=== PATIENT | female | born 1965 | race African-American/Black ===

== ENCOUNTER → 2019-06-06 | Outpatient (CLI) | payer OTHER | LOC: MAMMO 08:31 | PROVIDERS: ATTEND Obstetrics & Gynecology | DX: Z12.31 Encounter for screening mammogram for malignant neoplasm of breast (principal) | CPT/HCPCS: 77067 ==

== ENCOUNTER → 2020-06-07 | Outpatient (CLI) | payer OTHER | LOC: MAMMO 13:05 | PROVIDERS: ATTEND Obstetrics & Gynecology | DX: Z12.31 Encounter for screening mammogram for malignant neoplasm of breast (principal) | CPT/HCPCS: 77067 ==

== ENCOUNTER → 2021-12-31 | Outpatient (CLI) | payer BC | LOC: MAMMO 08:33 | PROVIDERS: ATTEND Obstetrics & Gynecology | DX: Z12.31 Encounter for screening mammogram for malignant neoplasm of breast (principal); M85.88 Other specified disorders of bone density and structure, other site | CPT/HCPCS: 77067; 77080 ==

== ENCOUNTER 2024-07-31 18:18 | Emergency (ER) | payer BC | END 2024-07-31 19:10 | disposition short-term general hospital (02) | LOC: FSED 18:18 | DX: R05.9 Cough, unspecified (principal) ==

== ENCOUNTER → 2024-10-31 | Outpatient (REF) | payer BC | LOC: MAMMO 09:08 | PROVIDERS: ATTEND Emergency Medicine | DX: Z12.31 Encounter for screening mammogram for malignant neoplasm of breast (principal) | CPT/HCPCS: 77067 ==